=== PATIENT | female | born 1950 | race Caucasian/White ===

== ENCOUNTER → 2020-01-08 13:12 | Outpatient (CLI) | payer MEDICARE, OTHER, SELFPAY ==
--- NOTE | 2020-01-08 13:16 | CT_ITS ---
Procedure: CT ANGIO ABDOMEN/FEMORAL CLINICAL HISTORY: NON HEALING WOUNDS,NEUROPATHY,CLAUDICATION,PAD COMPARISON: No exams were available for comparison TECHNIQUE: IV Contrast: 100ml Optiray 350 Axial images obtained with sagittal and coronal reformats. All CT scans at the facility use one or more dose reduction, viz: automated exposure control, ma/kV adjustment per patient size (including targeted exams where dose is matched to indication, i.e. head), or iterative reconstruction technique. FINDINGS: There are scattered atheromatous changes involving the aorta and its branches within the abdomen with atheromatous and soft plaque. No evidence of aortic aneurysm or dissection. Plaque is present at the ostium of the celiac with 30 percent stenosis. Calcific plaque is also present at the ostium of the SMA with 40 percent stenosis. There are 2 right renal arteries. Calcific plaque is present at the ostium of superior of the 2 right renal arteries. The degree of stenosis is difficult to project probably less than 50 percent. There is also calcific plaque at the proximal aspect of the left renal artery with 50 percent stenosis. The LITZY is patent. Atheromatous plaque involves the iliac arteries but no significant stenotic lesion evident. Right lower extremity runoff: Scattered atheromatous plaque. 50 percent smooth stenosis of the proximal SFA and mid SFA.. There is high-grade stenosis of the distal SFA on the right of approximately 70 percent approximately 2.5 cm in length. High-grade stenosis of the junction of the SFA with popliteal of approximately 70 percent noted. There is moderate to high-grade stenosis of the distal aspect of the tibial peroneal trunk of approximately 60 percent. Scattered atheromatous changes involve the runoff vessels. There is 2 vessel runoff to to the ankle. The anterior tib and peroneal artery is patent. The peroneal artery gives rise to the dorsalis pedis Left lower extremity runoff: High-grade stenosis of the proximal SFA of 70 percent. Similar to the right side, there are scattered atheromatous changes throughout the course of the SFA and popliteal with scattered areas of narrowing of up to 60 percent in the mid SFA. There is severe narrowing of the proximal aspect of the left peroneal artery the. There may be a small thrombus within the proximal aspect of the peroneal artery on the left. There is 2 vessel runoff to the ankle which includes the peroneal and anterior tib with the peroneal giving rise to the dorsalis pedis through collaterals. Pertinent non vascular the epidural stimulator device is present. Post cholecystectomy change with biliary ectasia. There is dilatation of the pancreatic duct. Calcification is noted in the the pancreatic duct distally at the pancreatic tail region. A multilocular appearing complex cystic areas noted in the pancreatic tail 2.6 x 2.9 cm. Distal to this there is an additional cystic area which measures 1.7 cm. There is an additional cystic area in the head of the pancreas measuring 2.4 cm. IMPRESSION: 1. Diffuse atheromatous changes are present as detailed above. Moderate to high-grade stenosis is present involving the lower extremity runoff vessels bilaterally. No occlusive changes are evident in the vessels above the knees. Please see above for detailed description. There is 2 vessel runoff in the legs bilaterally to the ankle. Scattered 60-70 percent stenosis is present in the SFA bilaterally. 2. At least 3 multilocular appearing cystic lesions of the pancreas with dilated pancreatic duct. There has been a prior cholecystectomy with biliary ductal dilatation as well. The pancreatic lesions could be related to serous cystic neoplasms versus branch duct IPMNs. Consider MRI
[2020-01-08 14:01] LABS: Basophils # 0.1 K/mm3 (0-0.2); Basophils % 0.6 % (0.1-2.0); Eosinophils # 0.2 K/mm3 (0.0-0.4); Eosinophils % 1.5 % (0.1-12.0); Hematocrit 37.4 % (37.0-47.0); Hemoglobin 11.6 g/dL (12.2-16.2); Lymphocytes # 3.5 K/mm3 (0.7-4.5); Lymphocytes % 23.6 % (10-50); Mean Corpuscular HGB Conc 31.1 g/dL (31.8-35.4); Mean Corpuscular Hemoglobin 28.2 pg (27.0-31.2); Mean Corpuscular Volume 90.8 fl (81-99); Mean Platelet Volume 7.6 fl (7.4-10.4); Monocytes # 0.4 K/mm3 (0.1-1.0); Neutrophils # 10.4 K/mm3 (1.8-7.8); Neutrophils % 71.1 % (37.0-80.0); Platelet Count 501 K/mm3 (142-424); Red Blood Count 4.13 M/mm3 (4.20-5.40); Red Cell Distribution Width 13.7 % (11.5-17.5); White Blood Count 14.6 K/mm3 (4.8-10.8)
[2020-01-08 14:07] LABS: Alanine Aminotransferase 11 U/L (12-78); Albumin Level 4.6 g/dl (3.5-5.0); Albumin/Globulin Ratio 1.4 (1.1-1.8); Alkaline Phosphatase 62 U/L (38-126); Anion Gap 13.8 mEq/L (5-15); Aspartate Amino Transferase 17 U/L (14-36); Bilirubin,Total 0.2 mg/dl (0.2-1.3); Blood Urea Nitrogen 19 mg/dl (7-17); Calcium 9.4 mg/dl (8.4-10.2); Carbon Dioxide 28 mmol/L (22.0-30.0); Chloride 99 mmol/L (98-107); Chol/HDL Ratio 5.6 (1-3.5); Cholesterol 257 mg/dl (140-200); Estimated Glomerular Filt Rate 62 ml/min (>60); GFR (African American) 75 ML/MIN (>60); Globulin 3.4 g/dL (1.3-3.2); Glucose 237 mg/dl (74-100); HDL Cholesterol 46 mg/dl (40-60); Potassium 3.8 mmoL/L (3.5-5.1); Sodium 137 mmol/L (136-145); Triglycerides 221 mg/dl (30-150); VLDL Cholesterol 44 mg/dL (0-40)
[2020-01-08 14:18] LABS: Direct LDL Cholesterol 183.74 mg/dL (100-129)
[2020-01-08 14:26] LABS: Free T4 (Free Thyroxine) 1.48 ng/dl (0.78-2.19)
[2020-01-08 14:40] LABS: Thyroid Stimulating Hormone 1.31 uIU/mL (0.465-4.68)
--- NOTE | 2020-01-08 14:49 | US_ITS ---
APPROVED REPORT Exam Type: Ankle to Brachial Index Database Administration Associate: Keara Peña RT(R) Indications Claudication: Bilaterally Rest Pain: Bilaterally Current Smoker Right great toe distal tip amputation 11/2019. History of CABG Risk Factors Hypertension Diabetes Pressures/Indices Right Indices Left Indices Brachial 146.00 mmHg Brachial 144.00 mmHg Low Thigh 174.00 mmHg 1.19 Low Thigh 215.00 mmHg 1.47 Calf 162.00 mmHg 1.11 Calf 123.00 mmHg 0.84 Ankle(PT) 166.00 mmHg 1.14 Ankle(PT) 85.00 mmHg 0.58 Ankle(DP) 138.00 mmHg 0.95 Ankle(DP) 151.00 mmHg 1.03 Digit 75.00 mmHg 0.51 Digit 61.00 mmHg 0.42 Findings RT JOSE ANGEL=1.1 LT JOSE ANGEL=0.6 RT TBI=0.5 LT TBI=0.4 Normal pulses on right, diminished pulses on left Abnormal waveforms distally bilaterally Conclusion Normal pulses on right, diminished pulses on left Abnormal waveforms distally bilaterally MODERATE LEFT ARTERIAL DISEASE Electronically signed by : Benny Tracy MD 01/08/2020 16:02:19
[2020-01-10 17:42] LABS: Triiodothyronine (T3) Free 2.2 pg/mL (2.0-4.4)
[2020-01-11 10:03] LABS: Vitamin D 25 Hydroxy 16.8 ng/mL (30.0-100.0)
== END ==
PROVIDERS: PCP Family Medicine; Visit Provider Family Medicine
DX: I25.10 Atherosclerotic heart disease of native coronary artery without angina pectoris (principal); R09.89 Other specified symptoms and signs involving the circulatory and respiratory systems; E78.5 Hyperlipidemia, unspecified; I10 Essential (primary) hypertension; E11.9 Type 2 diabetes mellitus without complications; Z79.84 Long term (current) use of oral hypoglycemic drugs; Z95.1 Presence of aortocoronary bypass graft; E55.9 Vitamin D deficiency, unspecified
CPT/HCPCS: 36415; 75635; 80053; 80061; 82652; 84439; 84443; 84481; 85025; 93923; Q9967